=== PATIENT | female | born 1970 ===

== ENCOUNTER → 2018-05-09 | Outpatient (CLI) | payer OTHER ==
--- NOTE | 2018-05-09 19:33 | RAD ---
Examination: KNEE LEFT 2V History: JOINT PAIN AND MACULAR DEGENRATION, DISABILITY DETERMINATION. Comparison/Correlation: None Findings: Frontal and lateral views of the left knee were obtained. Spurring involves the medial compartment. No acute fracture or bone destruction. No joint effusion. Joint space is adequate. Impression: Spurring of the medial compartment. Electronically signed by: Grayson Mccabe MD (05/09/2018 7:30 PM) [facility]
== END | disposition home or self-care (01) ==
LOC: RAD 09:42
PROVIDERS: ATTEND Neuromusculoskeletal Medicine, Sports Medicine
DX: M76.892 Other specified enthesopathies of left lower limb, excluding foot (principal)
CPT/HCPCS: 73560